=== PATIENT | female | born 1980 ===

== ENCOUNTER 2017-07-18 07:15 | Emergency (ER) | payer MEDICAID ==
[2017-07-18 07:25] VITALS: PULSE 63; O2SAT 100
[2017-07-18] MEDS ORDERED: Naproxen 550 mg Tab PO STA (07:40)
[2017-07-18] MEDS ORDERED: Naproxen 550 mg Tab PO ONE (08:10)
[2017-07-18 08:42] LABS: RBC URINE 5 /hpf (0-3); URINE BACTERIA OCC (<OCC); URINE BILIRUBIN NEGATIVE (NEGATIVE); URINE BLOOD NEGATIVE (NEGATIVE); URINE COLOR Yellow (YELLOW); URINE GLUCOSE (UA) NORMAL (Normal); URINE KETONE NEGATIVE (NEGATIVE); URINE LEUKOCYTE ESTERASE 1+ Leu/uL (Negative); URINE PROTEIN NEGATIVE (NEGATIVE); URINE UROBILINOGEN NORMAL mg/dL (0.2-1.0); WBC URINE 9 /hpf (0-5)
--- NOTE | 2017-07-18 08:53 | C.PDOC ---
History Of Present Illness 36 yo female c/o dysuria, vaginal itching, and lower back pain for 1 week. Denies vaginal discharge. No abdominal pain, n/v, fever. No trauma. No urinary or bowel incontinence or change in sensation. No urinary frequency. Time Seen by Provider: 07/18/17 07:31 Chief Complaint (Nursing): Back Pain History Per: Patient History/Exam Limitations: no limitations Onset/Duration Of Symptoms: Days Current Symptoms Are (Timing): Still Present Quality Of Discomfort: Burning, "Pain" Past Medical History Vital Signs: Last Vital Signs Temp 98.0 F 07/18/17 09:24 Pulse 63 07/18/17 09:24 Resp 14 07/18/17 09:24 BP 108/74 07/18/17 09:24 Pulse Ox 100 07/18/17 09:24 Family History: States: Unknown Family Hx - Social History Hx Alcohol Use: No Hx Substance Use: No - Immunization History Hx Tetanus Toxoid Vaccination: No Hx Influenza Vaccination: No Hx Pneumococcal Vaccination: No Review Of Systems Except As Marked, All Systems Reviewed And Found Negative. 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 Does not want STD testing or prophylaxis. Pt is instructed to follow up with [facility] in 1-2 days for re-evaluation. Disposition - Disposition Disposition: HOME/ ROUTINE Disposition Time: 08:54 Condition: STABLE Additional Instructions: Follow up with your [facility] in 2-3 days for further evaluation. Take medications as prescribed. Return to the emergency department at any time if symptoms persist or worsen. Prescriptions: Miconazole/Cleanser 17 On Wipe [Monistat 7 Combination Pack] 1 each VG HS #1 kit Nitrofurantoin Macrocrystals [Macrobid] 1 cap PO BID #10 cap Instructions: Vulvovaginal Candidiasis (ED) Forms: [facility] (Persian) - Clinical Impression Clinical Impression: Vulvovaginal candidiasis, Low back strain, UTI (urinary tract infection)
[2017-07-18 09:27] VITALS: BP 108/74; RESP 14; TEMP 98
== END 2017-07-18 10:05 | disposition home or self-care (01) ==
LOC: C.ER 07:15
DX: N39.0 Urinary tract infection, site not specified (principal); B37.3 Candidiasis of vulva and vagina; S39.012A Strain of muscle, fascia and tendon of lower back, initial encounter; X58.XXXA Exposure to other specified factors, initial encounter

== ENCOUNTER 2018-02-13 10:22 | Emergency (ER) | payer MEDICAID ==
[2018-02-13 10:55] LABS: HCG,QUALITATIVE URINE NEGATIVE (NEGATIVE)
[2018-02-13 11:02] LABS: SQUAMOUS EPITHIAL 8 /hpf (0-5); URINE BACTERIA RARE (<OCC); URINE BILIRUBIN NEGATIVE (NEGATIVE); URINE BLOOD NEGATIVE (NEGATIVE); URINE CLARITY Hazy (Clear); URINE COLOR Yellow (YELLOW); URINE GLUCOSE (UA) NORMAL (Normal); URINE LEUKOCYTE ESTERASE TRACE Leu/uL (Negative); URINE PROTEIN NEGATIVE (NEGATIVE); URINE UROBILINOGEN NORMAL mg/dL (0.2-1.0)
[2018-02-13] MEDS ORDERED: Naproxen 550 mg Tab PO STA (11:05)
--- NOTE | 2018-02-13 11:13 | C.PDOC ---
History Of Present Illness 37 year old female presents to the ED for evaluation of lower back pain and dysuria which began 2 days ago. Patient also admits to having mild vaginal discharge. Patient denies fever, chills, abdominal pain, vomiting, diarrhea, or concern for any STDs. Time Seen by Provider: 02/13/18 10:32 Chief Complaint (Nursing): Back Pain History Per: Patient History/Exam Limitations: no limitations Onset/Duration Of Symptoms: Days (2) Current Symptoms Are (Timing): Still Present Quality Of Discomfort: "Pain" Previous Symptoms: Back Pain Additional History Per: Patient Past Medical History Reviewed: Historical Data, Nursing Documentation, Vital Signs Vital Signs: Last Vital Signs Temp 98.7 F 02/13/18 11:32 Pulse 62 02/13/18 11:32 Resp 20 02/13/18 11:32 BP 110/72 02/13/18 11:32 Pulse Ox 97 02/13/18 11:32 - Medical History PMH: No Chronic Diseases Surgical History: No Surg Hx Family History: States: Unknown Family Hx - Social History Hx Alcohol Use: No Hx Substance Use: No - Immunization History Hx Tetanus Toxoid Vaccination: No Hx Influenza Vaccination: No Hx Pneumococcal Vaccination: No Review Of Systems Constitutional: Negative for: Fever, Chills Gastrointestinal: Negative for: Vomiting, Abdominal Pain Genitourinary: Positive for: Dysuria, Vaginal Discharge Musculoskeletal: Positive for: Back Pain Physical Exam - Physical Exam Appears: Non-toxic, No Acute Distress, Other (comfortable ) Skin: Normal Color, Warm, Dry, No Other (vesicular lesions ) Head: Atraumatic, Normacephalic Eye(s): bilateral: Normal Inspection Oral Mucosa: Moist Neck: Supple Chest: Symmetrical, No Deformity, No Tenderness Cardiovascular: Rhythm Regular, No Murmur Respiratory: Normal Breath Sounds, No Rales, No Rhonchi, No Wheezing Gastrointestinal/Abdominal: Soft, No Tenderness, No Guarding, No Rebound Pelvic: Vaginal Discharge (thin, white ), No Cervical Motion Tenderness, No Adnexal Tenderness Extremity: Normal ROM, Capillary Refill (less than 2 seconds ) Neurological/Psych: Oriented x3, Normal Speech, Normal Cognition, Normal Sensation Gait: Steady ED Course And Treatment O2 Sat by Pulse Oximetry: 100 (on RA) Pulse Ox Interpretation: Normal Disposition Counseled Patient/Family Regarding: Diagnosis, Need For Followup - Disposition Referrals: [facility] [Outside] Disposition: HOME/ ROUTINE Disposition Time: 11:30 Condition: STABLE Additional Instructions: FOLLOW UP WITH YOUR DOCTOR IN 1-2 DAYS USE MEDICATIONS DIRECTED RETURN TO ER IF SYMPTOMS WORSEN Prescriptions: Ciprofloxacin [Cipro] 1 tab PO BID #14 tab Metronidazole [Metrogel-Vaginal] 1 ea VG DAILY #5 gel Instructions: Urinary Tract Infection, Adult (DC) Forms: [facility] (Romanian) Print Language: SLOVENIAN - Clinical Impression Clinical Impression: UTI (urinary tract infection), Bacterial vaginosis - Scribe Statement The provider has reviewed the documentation as recorded by the Scribe (Hortensia Paulino) Provider Attestation: All medical record entries made by the Scribe were at my direction and personally dictated by me. I have reviewed the chart and agree that the record accurately reflects my personal performance of the history, physical exam, medical decision making, and the department course for this patient. I have also personally directed, reviewed, and agree with the discharge instructions and disposition.
[2018-02-13] MEDS ORDERED: Naproxen 550 mg Tab PO ONE (11:21)
[2018-02-13 11:33] VITALS: BP 110/72; PULSE 62; RESP 20; TEMP 98.7
[2018-02-13 18:42] VITALS: O2SAT 100
== END 2018-02-13 11:35 | disposition home or self-care (01) ==
LOC: C.ER 10:22
DX: N39.0 Urinary tract infection, site not specified (principal); N76.0 Acute vaginitis